=== PATIENT | male | born 1970 | race Caucasian/White ===

== ENCOUNTER → 2019-12-20 | Outpatient (CLI) | payer BC, MEDICAID ==
[~2019-12-20] MED LIST: ACET-1600 PO; ASPI81TA45 PO
[2019-12-20 12:43] LABS: BASOPHILS # (AUTO) 0.02 x10^3/uL (0-0.1); BASOPHILS % (AUTO) 0 % (0-1); EOSINOPHILS # (AUTO) 0.08 x10^3/uL (0-0.4); EOSINOPHILS % (AUTO) 1 % (1-7); LYMPHOCYTES # (AUTO) 0.99 x10^3/uL (1-3.4); LYMPHOCYTES % (AUTO) 17 % (22-44); MD NO; MEAN CORPUSCULAR HEMOGLOBIN 33.1 pg (27.5-34.5); MEAN CORPUSCULAR HGB CONC 33.9 g/dL (33.2-36.2); MEAN CORPUSCULAR VOLUME 97.5 fL (81-97); MEAN PLATELET VOLUME 8.2 fL (7.4-10.4); MONOCYTES # (AUTO) 0.32 x10^3/uL (0.2-0.8); MONOCYTES % (AUTO) 5 % (2-9); NEUTROPHILS # (AUTO) 4.52 x10^3/uL (1.8-6.8); NEUTROPHILS % (AUTO) 76 % (42-75); PLATELET COUNT 272 x10^3/uL (130-400); RED BLOOD COUNT 4.53 x10^6/uL (4.38-5.82); RED CELL DISTRIBUTION WIDTH 14.5 % (9.4-14.8)
[2019-12-20 12:50] LABS: INTERNATIONAL NORMALIZED RATIO 1.09 (0.93-1.1); PROTHROMBIN TIME 11.2 Seconds (9.6-11.5)
[2019-12-20 12:51] LABS: ANION GAP 5 mmol/L (5-15); CALCIUM 9.2 mg/dL (8.5-10.1); CHLORIDE 106 mmol/L (98-107); CREATININE 1.15 mg/dL (0.7-1.3)
== END | disposition home or self-care (01) ==
LOC: STAR 10:35
PROVIDERS: ATTEND Orthopaedic Surgery
DX: Z01.812 Encounter for preprocedural laboratory examination (principal); M17.12 Unilateral primary osteoarthritis, left knee; M25.562 Pain in left knee; Z20.828 Contact with and (suspected) exposure to other viral communicable diseases
CPT/HCPCS: 36415; 80048; 83036; 85025; 85610; 85730; 87081; 87147; 87635

== ENCOUNTER 2019-12-25 08:26 | Day surgery (SDC) | payer MEDICAID ==
[~2019-12-25] VITALS: Ht 167.6 cm; Wt 70.0 kg
[~2019-12-25 08:26] MED LIST changes: +ACETAMINOPHEN 650 MG/20.3 ML UDC PO PRN; +BISACODYL 10 MG SUPP PR PRN; +CEFAZOLIN PMX 2GM/50ML 50 ML IVPB SCH; +DIPHENHYDRAMINE 50 MG CAPSULE PO PRN; +EPINEPHRINE 1 MG/ML, 1ML ONE; +HYDROcodone/APAP 5/325 TABLET PO PRN; +HYDROmorphone 1 MG/ML, 1ML INJ IV PRN; +KETOROLAC 60 MG/2 ML ONE; +MAGNESIUM HYDROXIDE 8%, 30ML UDC PO PRN; +NS + 20MEQ KCL 1,000 ML IV SCH; +ONDANSETRON 2MG/ML, 2ML IV PRN; +ONDANSETRON 4 MG TABLET PO PRN; +OXYcodone IR 5MG TABLET PO PRN; +ROPIvacaine/PF 0.5%, 20 ML ONE; +ROPIvacaine/PF 0.5%, 30 ML ONE; +SENNA/DOCUSATE TABLET PO PRN; +SODIUM CHLORIDE 0.9% 0 ML ONE; +TRANEXAMIC ACID 100 MG/ML, 10ML ONE; +VANCOMYCIN 1,000 MG ONE; +ZOLPIDEM 5MG TABLET PO PRN
[2019-12-25] MEDS ORDERED: DOCUSATE 100 MG CAPSULE PO SCH (09:00)
[2019-12-25] MEDS ORDERED: CHLORHEXIDINE 15 ML UDC MM STA (09:01)
[2019-12-25] MEDS ORDERED: LACTATED RINGERS 1,000 ML IV STA (09:01)
[2019-12-25] MEDS ORDERED: ACETAMINOPHEN 500 MG TABLET PO STA (09:02)
[2019-12-25] MEDS ORDERED: GABAPENTIN 300 MG CAPSULE PO STA (09:02)
[2019-12-25 09:03] VITALS: BP 131/93
[2019-12-25 09:18] LABS: HCG UR SG 1.021 (1.003-1.030)
[2019-12-25 09:30] LABS: AMPHETAMINE SCREEN, URINE Positive (Negative); BARBITURATE SCREEN, URINE Negative (Negative); BENZODIAZEPINE SCREEN, URINE Negative (Negative); CANNABINOID SCREEN, URINE Negative (Negative); COCAINE SCREEN, URINE Negative (Negative); METHADONE SCREEN, URINE Negative (Negative); OPIATE SCREEN, URINE Negative (Negative)
[2019-12-25] MEDS ORDERED: CEFAZOLIN 1,000 MG ONE (09:32)
[2019-12-25] MEDS ORDERED: PROPOFOL 10 MG/ML, 20ML ONE (09:32)
[2019-12-25] MEDS ORDERED: FENTANYL PF 100 MCG/2ML ONE (09:32)
[2019-12-25] MEDS ORDERED: MIDAZOLAM 1 MG/ML, 2ML ONE (09:32)
[2019-12-25] MEDS ORDERED: ONDANSETRON 2MG/ML, 2ML ONE (09:32)
[2019-12-25] MEDS ORDERED: DEXAMETHASONE 4 MG/ML, 1ML ONE (09:32)
[2019-12-25] MEDS ORDERED: VANCOMYCIN 1,000 MG ONE (10:04)
[2019-12-25] MEDS ORDERED: LACTATED RINGERS 1,000 ML IV SCH (10:30)
[2019-12-25] MEDS ORDERED: ROPIvacaine/PF 0.5%, 30 ML ONE ×2 (14:03→14:04)
[2019-12-25] MEDS ORDERED: ROPIvacaine/PF 0.5%, 20 ML ONE (14:03)
[2019-12-25] MEDS ORDERED: ASPIRIN 81 MG TABLET EC PO SCH (18:00)
[2019-12-26] MEDS ORDERED: DEXAMETHASONE 4 MG/ML, 1ML IVPush SCH (06:00)
== END 2019-12-25 10:50 | disposition home or self-care (01) ==
LOC: OUT 08:26 → EDSEX 08:26 → OUT 10:50
PROVIDERS: ATTEND Orthopaedic Surgery
DX: M17.0 Bilateral primary osteoarthritis of knee (principal); Z53.8 Procedure and treatment not carried out for other reasons; M21.062 Valgus deformity, not elsewhere classified, left knee; M21.061 Valgus deformity, not elsewhere classified, right knee; M25.562 Pain in left knee; F17.210 Nicotine dependence, cigarettes, uncomplicated; F19.10 Other psychoactive substance abuse, uncomplicated; Z72.89 Other problems related to lifestyle; Z79.899 Other long term (current) drug therapy
CPT/HCPCS: 80307; 81025; J0690; J1100; J2405; J2704; J2795; J3370; J7120; J0171; J1885; J2250; J3010

== ENCOUNTER 2020-01-08 09:21 | Observation (INO) | payer MEDICAID ==
[~2020-01-08] VITALS: Ht 166.4 cm; Wt 77.0 kg
[2020-01-08] MEDS: NS + 20MEQ KCL 1,000 ML IV SCH ×2 (06:40→18:33)
[2020-01-08] MEDS: DOCUSATE 100 MG CAPSULE PO SCH ×2 (09:00→20:42)
[~2020-01-08 09:21] MED LIST changes: +FENTANYL PF 250 MCG/5ML ONE; +MIDAZOLAM 1 MG/ML, 2ML ONE; -NS + 20MEQ KCL 1,000 ML IV SCH; -OXYcodone IR 5MG TABLET PO PRN; -SODIUM CHLORIDE 0.9% 0 ML ONE; +SODIUM CHLORIDE 0.9% 50 ML ONE
[2020-01-08] MEDS ORDERED: PLEASE ENTER HEIGHT AND WEIGHT MC SCH (09:30)
[2020-01-08] MEDS ORDERED: LACTATED RINGERS 1,000 ML IV SCH (09:48)
[2020-01-08] MEDS ORDERED: ACETAMINOPHEN 500 MG TABLET PO ONE (09:50)
[2020-01-08] MEDS ORDERED: GABAPENTIN 300 MG CAPSULE PO ONE (09:50)
[2020-01-08 09:57] VITALS: BP 149/99
[2020-01-08] MEDS ORDERED: CHLORHEXIDINE 15 ML UDC MM ONE (10:00)
[2020-01-08] MEDS ORDERED: LIDOCAINE-MPF 1%, 2ML INFIL ONE (10:00)
[2020-01-08 10:01] LABS: HCG UR SG 1.013 (1.003-1.030)
[2020-01-08 10:12] LABS: AMPHETAMINE SCREEN, URINE Positive (Negative); BARBITURATE SCREEN, URINE Negative (Negative); BENZODIAZEPINE SCREEN, URINE Negative (Negative); CANNABINOID SCREEN, URINE Negative (Negative); COCAINE SCREEN, URINE Negative (Negative); METHADONE SCREEN, URINE Negative (Negative); OPIATE SCREEN, URINE Negative (Negative)
[2020-01-08] MEDS ORDERED: MIDAZOLAM 1 MG/ML, 2ML ONE (11:01)
[2020-01-08] MEDS ORDERED: FENTANYL PF 250 MCG/5ML ONE (11:01)
[2020-01-08] MEDS ORDERED: LABETALOL 5MG/ML, 20ML IV PRN (12:00)
[2020-01-08] MEDS ORDERED: PROMETHAZINE 25 MG SUPP PR PRN (12:00)
[2020-01-08] MEDS ORDERED: ONDANSETRON 2MG/ML, 2ML IVPush PRN (12:00)
[2020-01-08] MEDS ORDERED: PROMETHAZINE 12.5 MG SUPP PR PRN (12:00)
[2020-01-08] MEDS ORDERED: OXYcodone 5 MG/5 ML ORAL.SOL UDC PO PRN (12:00)
[2020-01-08] MEDS ORDERED: LORazepam 2 MG/ML, 1ML IVPush PRN (12:00)
[2020-01-08] MEDS ORDERED: hydrALAzine 20 MG/ML, 1ML IV PRN (12:00)
[2020-01-08] MEDS ORDERED: FENTANYL PF 100 MCG/2ML IV PRN (12:00)
[2020-01-08] MEDS ORDERED: HYDROmorphone 1 MG/ML, 1ML INJ IVPush PRN (12:00)
[2020-01-08] MEDS ORDERED: CEFAZOLIN 1,000 MG ONE (13:07)
[2020-01-08] MEDS ORDERED: ONDANSETRON 2MG/ML, 2ML ONE (13:07)
[2020-01-08] MEDS ORDERED: SUCCINYLCHOLINE 20 MG/ML, 10ML ONE (13:07)
[2020-01-08] MEDS ORDERED: PROPOFOL 10 MG/ML, 20ML ONE (13:07)
[2020-01-08] MEDS ORDERED: DEXAMETHASONE 4 MG/ML, 1ML ONE (13:07)
[2020-01-08] MEDS ORDERED: GLYCOPYRROLATE 0.2MG/1ML, 5ML ONE (13:07)
[2020-01-08] MEDS ORDERED: NEOSTIGMINE 1 MG/ML, 10ML ONE (13:07)
[2020-01-08] MEDS ORDERED: OXYcodone 5 MG/5 ML ORAL.SOL UDC ONE (14:45)
[2020-01-08] MEDS ORDERED: FENTANYL PF 100 MCG/2ML ONE (14:45)
[2020-01-08 15:40] VITALS: BP 131/86
[2020-01-08] MEDS ORDERED: METHOCARBAMOL 1,000 MG in DEXTROSE 5% 100 ML IV PRN (16:00)
[2020-01-08] MEDS: ASPIRIN 81 MG TABLET EC PO SCH (17:48)
[2020-01-08 19:15] VITALS: BP 126/84
[2020-01-08] MEDS: CEFAZOLIN PMX 2GM/50ML 50 ML IVPB SCH (20:43)
[2020-01-09 00:41] VITALS: BP 118/71
[2020-01-09] MEDS: CEFAZOLIN PMX 2GM/50ML 50 ML IVPB SCH (04:18)
[2020-01-09] MEDS: OXYcodone IR 5MG TABLET PO PRN ×2 (04:34→08:51)
[2020-01-09 04:40] VITALS: BP 111/75
[2020-01-09] MEDS ORDERED: DEXAMETHASONE 4 MG/ML, 1ML IVPush SCH (06:00)
[2020-01-09] MEDS: ASPIRIN 81 MG TABLET EC PO SCH (06:02)
[2020-01-09] MEDS: NS + 20MEQ KCL 1,000 ML IV SCH (07:40)
[2020-01-09 07:50] VITALS: BP 112/78
[2020-01-09] MEDS: DOCUSATE 100 MG CAPSULE PO SCH (08:51)
[2020-01-09] MEDS ORDERED: OXYC5CAP2 PO (09:58)
[2020-01-09 10:01] VITALS: BP 130/93
[2020-01-09] MEDS ORDERED: TRAM50TA2 PO (10:01)
[2020-01-09] MEDS ORDERED: MELO7.5T31 PO (10:03)
== END 2020-01-09 10:30 | disposition home or self-care (01) ==
LOC: OUT 09:21 → 4NE 15:25 → OUT 23:21 → 4NE 23:22 → INTOOBSV 23:22 → DCLOUNGE 01-09 10:08
PROVIDERS: ADMIT Orthopaedic Surgery; ATTEND Orthopaedic Surgery
DX: M17.12 Unilateral primary osteoarthritis, left knee (principal); Z20.828 Contact with and (suspected) exposure to other viral communicable diseases; J45.909 Unspecified asthma, uncomplicated; F17.200 Nicotine dependence, unspecified, uncomplicated; Z79.899 Other long term (current) drug therapy
CPT/HCPCS: 27447; 36415; 80307; 81025; 85014; 85018; 87635; 96361; 96365; 96375; 96376; 97110; 97161; 97165; C1713; C1776; G0378; J0171; J0330; J0690; J1100; J1885; J2250; J2405; J2704; J2710; J2795; J3010; J3370; J3480; J7120; 96366